=== PATIENT | male | born 1935 | race Caucasian/White ===

== ENCOUNTER 2022-09-09 13:19 | Inpatient (IN) ==
[~2022-09-09 13:19] MED LIST: Acetaminophen IV 1,000 MG/100 ML BAG IVPB ONE; Famotidine 20 MG/2 ML VIAL IVP ONE; GEMCITABINE HCL IS ONE; Ringers Solution, Lactated 1,000 ML IVC ONE; WATER FOR INJ IS ONE; [UNRECOGNIZED DRUG - OTHER] IS ONE
[2022-09-09] MEDS ORDERED: CeFAZolin Syr 3,000MG/30 ML 3,000 MG/30 ML SYRINGE IVPB ONE (13:51)
[2022-09-09] MEDS ORDERED: SODIUM CHLORIDE 0.9% IVPB ONE (13:53)
[2022-09-09] MEDS ORDERED: GENTAMICIN IVPB ONE (13:53)
[2022-09-09] MEDS ORDERED: Albuterol 2.5 MG/3 ML NEBULIZER IH PRN (14:21)
[2022-09-09] MEDS ORDERED: Naloxone 0.4 MG/ML INJ IVP PRN ×2 (14:21→19:52)
[2022-09-09] MEDS ORDERED: Nitroglycerin 0.4 MG TAB.SUBL SL PRN (14:21)
[2022-09-09] MEDS ORDERED: Ondansetron 4 MG/2 ML VIAL IVP PRN ×2 (14:21→19:52)
[2022-09-09] MEDS ORDERED: *HR* FentaNYL (PF) 100 MCG/2 ML VIAL IVP PRN (14:21)
[2022-09-09] MEDS ORDERED: CeFAZolin Syr 2,000MG/20 ML 2,000 MG/20 ML SYRINGE IVPB ONE (14:30)
[2022-09-09] MEDS ORDERED: Ondansetron 4 MG/2 ML VIAL ONE (14:49)
[2022-09-09] MEDS ORDERED: Lidocaine -MPF 2% 2 ML VIAL ONE (14:49)
[2022-09-09] MEDS ORDERED: *HR* Propofol 200 MG/20 ML VIAL IVP ONE (14:50)
[2022-09-09] MEDS ORDERED: *HR* FentaNYL (PF) 100 MCG/2 ML VIAL ONE (14:51)
[2022-09-09] MEDS ORDERED: EPHEDrine sulfate 50 MG/10 ML VIAL IVP ONE (16:10)
[2022-09-09] MEDS ORDERED: *HR* HYDROcodone/Acet 5/325 mg TABLET PO PRN (16:56)
[2022-09-09] MEDS ORDERED: Dextrose Gel 15 GM/37.5 ML TUBE PO PRN ×2 (19:52)
[2022-09-09] MEDS ORDERED: Acetaminophen 325 MG TABLET PO PRN (19:52)
[2022-09-09] MEDS ORDERED: D5% in Water 1,000 ML IVC PRN (19:52)
[2022-09-09] MEDS ORDERED: *HR* Dextrose 50 % in Water (Syg) 50 ML SYRINGE IVP PRN (19:52)
[2022-09-09] MEDS: 0.9 % Sodium Chloride 1,000 ML IVC SCH (21:42)
[2022-09-09] MEDS: Insulin LISPRO 300 UNITS/3 ML VIAL SUBQ SCH (21:52)
[2022-09-10] MEDS: Insulin LISPRO 300 UNITS/3 ML VIAL SUBQ SCH ×3 (08:31→16:46)
[2022-09-10] MEDS: *HR* HYDROcodone/Acet 5/325 mg TABLET PO PRN (10:17)
[2022-09-10] MEDS: 0.9 % Sodium Chloride 1,000 ML IVC SCH ×2 (16:46→16:49)
[2022-09-10] MEDS: *HR* OxyCODONE Immed Rel 5 MG TABLET PO PRN (21:48)
[2022-09-11 01:18] LABS: Basophils % 0.3 %; Eosinophils # 0.1 K/mcL (0.0-0.6); Eosinophils % 0.6 %; Hematocrit 22.5 % (37.5-50.1); Hemoglobin 7.6 g/dL (12.9-16.9); Immature Granulocytes % 0.7 % (0-4); Lymphocytes # 1.5 K/mcL (0.6-4.6); Lymphocytes % 12.8 %; Mean Corpuscular HGB Conc 33.8 g/dL (31.6-35.5); Mean Corpuscular Hemoglobin 31.5 pg (28.0-33.3); Mean Corpuscular Volume 93.4 fL (83.0-100.0); Mean Platelet Volume 10.1 fL (9.4-12.4); Monocytes % 8.2 %; Neutrophils # 9.3 K/mcL (1.6-8.9); Platelet Count 156 K/mcL (140-400); Red Blood Count 2.41 M/mcL (4.19-5.50); Red Cell Distribution Width 13.4 % (11.5-14.5); Segmented Neutrophils % 77.4 %
[2022-09-11 01:34] LABS: Calcium 8.3 mg/dL (8.6-10.3); Potassium 4.1 mEq/L (3.5-5.1)
[2022-09-11] MEDS: *HR* HYDROcodone/Acet 5/325 mg TABLET PO PRN (02:51)
[2022-09-11] MEDS: *HR* OxyCODONE Immed Rel 5 MG TABLET PO PRN (03:56)
[2022-09-11] MEDS ORDERED: ceFAZolin 2,000 MG in Water for inj. (sterile) 20 ML IVP ONE (06:14)
[2022-09-11] MEDS ORDERED: Lidocaine -MPF 2% 2 ML VIAL ONE (06:14)
[2022-09-11] MEDS ORDERED: *HR* Propofol 200 MG/20 ML VIAL IVP ONE (06:14)
[2022-09-11] MEDS ORDERED: *HR* FentaNYL (PF) 100 MCG/2 ML VIAL ONE (06:16)
[2022-09-11] MEDS ORDERED: *HR* Metoprolol 5 MG/5 ML VIAL IVP ONE (06:31)
[2022-09-11] MEDS ORDERED: Acetaminophen IV 1,000 MG/100 ML BAG IVPB ONE ×2 (06:37→09:13)
[2022-09-11] MEDS ORDERED: *HR* HYDROmorphone (PF) 1 MG/ML SYRINGE IVP PRN (06:37)
[2022-09-11] MEDS ORDERED: Famotidine 20 MG/2 ML VIAL IVP ONE ×2 (06:37→09:13)
[2022-09-11] MEDS ORDERED: *HR* HYDROmorphone 2 MG TABLET PO PRN (06:37)
[2022-09-11] MEDS ORDERED: *HR* OxyCODONE Immed Rel 5 MG TABLET PO PRN ×2 (06:37→09:13)
[2022-09-11] MEDS ORDERED: *HR* Labetalol 20 MG/4 ML SYRINGE IVP PRN (06:37)
[2022-09-11] MEDS ORDERED: Ondansetron 4 MG/2 ML VIAL IVP PRN ×2 (06:37→09:13)
[2022-09-11] MEDS ORDERED: Ondansetron 4 MG/2 ML VIAL ONE (07:16)
[2022-09-11] MEDS ORDERED: *HR* Dextrose 50 % in Water (Syg) 50 ML SYRINGE IVP PRN (09:13)
[2022-09-11] MEDS ORDERED: D5% in Water 1,000 ML IVC PRN (09:13)
[2022-09-11] MEDS ORDERED: Dextrose Gel 15 GM/37.5 ML TUBE PO PRN ×2 (09:13)
[2022-09-11] MEDS ORDERED: Naloxone 0.4 MG/ML INJ IVP PRN (09:13)
[2022-09-11] MEDS: Metoprolol XL (24 HR) Succ 25 MG TAB.ER.24H PO SCH (09:37)
[2022-09-11] MEDS: amLODIPine 5 MG TABLET PO SCH (09:37)
[2022-09-11] MEDS: Gabapentin 100 MG CAPSULE PO SCH ×3 (09:37→21:54)
[2022-09-11] MEDS: 0.9 % Sodium Chloride 1,000 ML IVC SCH (09:39)
[2022-09-11] MEDS: Insulin LISPRO 300 UNITS/3 ML VIAL SUBQ SCH ×3 (12:01→21:56)
[2022-09-11] MEDS: Finasteride 5 MG TABLET PO SCH (12:52)
[2022-09-11] MEDS ORDERED: 0.9 % Sodium Chloride 250 ML ONE (15:58)
[2022-09-11] MEDS ORDERED: GlipiZIDE 5 MG TABLET PO SCH (17:00)
[2022-09-11] MEDS ORDERED: *HR* Metformin 500 MG TABLET PO SCH (17:00)
[2022-09-11 20:12] LABS: Hematocrit 20.4 % (37.5-50.1); Hemoglobin 6.8 g/dL (12.9-16.9)
[2022-09-11] MEDS: Insulin DETEMIR 100 UNIT/ML X5UNITS SUBQ SCH (21:55)
[2022-09-12 03:03] LABS: Basophils % 0.2 %; Eosinophils % 0.2 %; Hematocrit 18.8 % (37.5-50.1); Hemoglobin 6.4 g/dL (12.9-16.9); Immature Granulocytes % 0.9 % (0-4); Lymphocytes % 16.9 %; Mean Corpuscular Hemoglobin 31.7 pg (28.0-33.3); Mean Corpuscular Volume 93.1 fL (83.0-100.0); Mean Platelet Volume 9.9 fL (9.4-12.4); Monocytes # 1.3 K/mcL (0.0-1.3); Monocytes % 10.5 %; Neutrophils # 8.5 K/mcL (1.6-8.9); Platelet Count 146 K/mcL (140-400); Red Blood Count 2.02 M/mcL (4.19-5.50); Red Cell Distribution Width 14.3 % (11.5-14.5); Segmented Neutrophils % 71.3 %; White Blood Count 11.9 K/mcL (4.3-11.1)
[2022-09-12 03:28] LABS: Albumin 3.6 g/dL (3.5-5.7); Bilirubin,Total 0.6 mg/dL (0.3-1.0); Globulin 1.8 g/dL (2.4-3.5); Potassium 4.7 mEq/L (3.5-5.1); Total Protein 5.4 g/dL (6.4-8.9)
[2022-09-12] MEDS: Insulin LISPRO 300 UNITS/3 ML VIAL SUBQ SCH ×4 (08:42→21:00)
[2022-09-12] MEDS: Finasteride 5 MG TABLET PO SCH (08:42)
[2022-09-12] MEDS: Gabapentin 100 MG CAPSULE PO SCH ×3 (08:42→20:59)
[2022-09-12] MEDS: amLODIPine 5 MG TABLET PO SCH (08:42)
[2022-09-12] MEDS: Metoprolol XL (24 HR) Succ 25 MG TAB.ER.24H PO SCH (08:42)
[2022-09-12 11:21] LABS: Hematocrit 21.6 % (37.5-50.1); Hemoglobin 7.3 g/dL (12.9-16.9)
[2022-09-12] MEDS: *HR* HYDROcodone/Acet 5/325 mg TABLET PO PRN (16:40)
[2022-09-12] MEDS: Insulin DETEMIR 100 UNIT/ML X5UNITS SUBQ SCH (21:00)
[2022-09-13] MEDS: amLODIPine 5 MG TABLET PO SCH (08:20)
[2022-09-13] MEDS: Metoprolol XL (24 HR) Succ 25 MG TAB.ER.24H PO SCH (08:20)
[2022-09-13] MEDS: Gabapentin 100 MG CAPSULE PO SCH ×3 (08:20→21:00)
[2022-09-13] MEDS: Insulin LISPRO 300 UNITS/3 ML VIAL SUBQ SCH ×4 (08:20→20:59)
[2022-09-13] MEDS: 0.9 % Sodium Chloride 1,000 ML IVC SCH (08:20)
[2022-09-13] MEDS: Finasteride 5 MG TABLET PO SCH (08:20)
[2022-09-13 12:17] LABS: Calcium 8.1 mg/dL (8.6-10.3); Potassium 4.5 mEq/L (3.5-5.1)
[2022-09-13 12:51] LABS: Basophils % 0.3 %; Eosinophils # 0.1 K/mcL (0.0-0.6); Eosinophils % 0.7 %; Hematocrit 20.8 % (37.5-50.1); Hemoglobin 6.9 g/dL (12.9-16.9); Immature Granulocytes % 1.3 % (0-4); Lymphocytes # 1.6 K/mcL (0.6-4.6); Mean Corpuscular HGB Conc 33.2 g/dL (31.6-35.5); Mean Corpuscular Hemoglobin 31.5 pg (28.0-33.3); Monocytes # 1.1 K/mcL (0.0-1.3); Monocytes % 8.3 %; Neutrophils # 10.4 K/mcL (1.6-8.9); Nucleated Red Blood Cells 0.1 /100 WBC (0); Platelet Count 132 K/mcL (140-400); Red Blood Count 2.19 M/mcL (4.19-5.50); Red Cell Distribution Width 14.9 % (11.5-14.5); Segmented Neutrophils % 77.4 %; White Blood Count 13.4 K/mcL (4.3-11.1)
[2022-09-13] MEDS ORDERED: 0.9 % Sodium Chloride 250 ML ONE (14:14)
[2022-09-13] MEDS: *HR* HYDROcodone/Acet 5/325 mg TABLET PO PRN (14:16)
[2022-09-13] MEDS: Insulin DETEMIR 100 UNIT/ML X5UNITS SUBQ SCH (21:00)
[2022-09-14] MEDS: 0.9 % Sodium Chloride 1,000 ML IVC SCH (00:30)
[2022-09-14] MEDS: Finasteride 5 MG TABLET PO SCH (09:10)
[2022-09-14] MEDS: Gabapentin 100 MG CAPSULE PO SCH ×2 (09:10→16:03)
[2022-09-14] MEDS: amLODIPine 5 MG TABLET PO SCH (09:10)
[2022-09-14] MEDS: Metoprolol XL (24 HR) Succ 25 MG TAB.ER.24H PO SCH (09:10)
[2022-09-14] MEDS: Insulin LISPRO 300 UNITS/3 ML VIAL SUBQ SCH ×2 (09:11→12:46)
[2022-09-14 09:33] LABS: Hematocrit 21.6 % (37.5-50.1); Hemoglobin 7.3 g/dL (12.9-16.9)
[2022-09-14 10:17] VITALS: BP 145/73; PULSE 80; TEMP 98.3; O2SAT 98
== END 2022-09-14 16:56 | disposition home health service (06) | DRG 666 ==
LOC: 3ANU 13:19 → SAMDAY 13:19 → 3ANU 19:02 → SUATTDRO 09-10 12:44
PROVIDERS: ADMIT Urology; ATTEND Internal Medicine
PROC: UROTURP (2022-09-11 06:00)